=== PATIENT | female | born 1990 | race Caucasian/White ===

== ENCOUNTER 2018-02-23 09:59 | Inpatient (IN) | payer OTHER ==
[2018-02-23 11:17] VITALS: BMI 25.4
--- NOTE | 2018-02-23 19:29 | HP ---
CIWA Score - CIWA Score Nausea/Vomitin Muscle Tremors: 3 Anxiety: 3 Agitation: 3 Paroxysmal Sweats: 3 Orientation: 0-Oriented Tacttile Disturbances: 0-None Auditory Disturbances: 0-None Visual Disturbances: 0-None Headache: 0-None Present CIWA-Ar Total Score: 15 Admission ROS BHS - HPI Chief Complaint: "My drinking is getting too much and I just want to stop" Allergies/Adverse Reactions: Allergies Allergy/AdvReac Type Severity Reaction Status Date / Time No Known Allergies Allergy Verified 02/23/18 18:11 History of Present Illness: 27 y/o female presents requesting detox. Pt states this is her first time seeking help with drinking because "my drinking got worse lately" Last drink was 3am. Denies med hx. Psych hx - depression, Anxiety Denies prior or current Si/HI Exam Limitations: No Limitations - Ebola screening Have you traveled outside of the country in the last 21 days: No (N) Have you had contact with anyone from an Ebola affected area: No Have you been sick,other than usual withdrawal symptoms: No Do you have a fever: No - Review of Systems Constitutional: Loss of Appetite, Unintentional Wgt. Loss EENT: reports: No Symptoms Reported Respiratory: reports: No Symptoms reported Cardiac: reports: No Symptoms Reported GI: reports: Diarrhea, Poor Appetite, Abdominal cramping : reports: No Symptoms Reported Musculoskeletal: reports: No Symptoms Reported Integumentary: reports: Dryness (dryness to lips), Sweating Neuro: reports: Headache Endocrine: reports: Other (sweating) Hematology: reports: Easy Bleeding Psychiatric: reports: Orientated x3, Anxious, Depressed Other Systems: Reviewed and Negative Patient History - Patient Medical History Hx Anemia: No Hx Asthma: Yes (Albuterol prn) Hx Chronic Obstructive Pulmonary Disease (COPD): No Hx Cancer: No Hx Cardiac Disorders: No Hx Congestive Heart Failure: No Hx Hypertension: No Hx Hypercholesterolemia: No Hx Pacemaker: No HX Cerebrovascular Accident: No Hx Seizures: No Hx Dementia: No Hx Diabetes: No Hx Gastrointestinal Disorders: No Hx Liver Disease: No Hx Genitourinary Disorders: No Hx Sexually Transmitted Disorders: No Hx Renal Disease (ESRD): No Hx Thyroid Disease: No Hx Human Immunodeficiency Virus (HIV): No (Requests testing) Hx Hepatitis C: No Hx Depression: Yes Hx Suicide Attempt: No (denies Current SI) Hx Bipolar Disorder: No Hx Schizophrenia: No - Patient Surgical History Past Surgical History: Yes Hx Neurologic Surgery: No Hx Cataract Extraction: No Hx Cardiac Surgery: No Hx Lung Surgery: No Hx Breast Surgery: No Hx Breast Biopsy: No Hx Abdominal Surgery: No Hx Appendectomy: No Hx Cholecystectomy: No Hx Genitourinary Surgery: No Hx Section: Yes (jun 2009) Hx Orthopedic Surgery: No Hx Hysterectomy: No - PPD History Previous Implant?: No Documented Results: Negative w/o proof Implanted On Prior [facility] Admission?: No PPD to be Administered?: Yes - Reproductive History Patient is a Female of Child Bearing Age (11 -55 yrs old): Yes Last Menstrual Period: 02/02/18 Patient : No - Smoking Cessation Smoking history: Current some day smoker Have you smoked in the past 12 months: Yes Initiated information on smoking cessation: Yes 'Breaking Loose' booklet given: 02/23/18 - Substance & Tx. History Hx Alcohol Use: Yes Hx Substance Use: No Substance Use Type: Alcohol, Marijuana Hx Substance Use Treatment: No - Substances Abused Alcohol Route: Oral Frequency: Daily Amount used: Vodka 1 pint Age of first use: 19 Date of Last Use: 02/23/18 Marijuana/Hashish Route: Smoking Frequency: 1-2 times per week Amount used: 1 bag Age of first use: 19 Date of Last Use: 02/19/18 Family Disease History - Family Disease History Family Disease History: Diabetes: Father (Alive), CA: Mother (Breast. bipolar, anxiety), Other: Grandparent (Alive, Alcoholic), Mother, Brother (Depression), Daughter (Asthma (8 y/o)) Admission Physical Exam S - Vital Signs Vital Signs: Vital Signs - 24 hr 02/23/18 11:13 Temperature 97 F L Pulse Rate 94 H Respiratory 18 Rate Blood Pressure 139/79 - Physical General Appearance: Yes: Mild Distress, Anxious HEENTM: Yes: Within Normal Limits Respiratory: Yes: Lungs Clear, Normal Breath Sounds Neck: Yes: No masses,lesions,Nodules, Trachea in good position Breast: Yes: Breast Exam Deferred Cardiology: Yes: Regular Rate Abdominal: Yes: Non Tender Genitourinary: Yes: Within Normal Limits Back: Yes: Normal Inspection Musculoskeletal: Yes: full range of Motion, Gait Steady Extremities: Yes: Normal Capillary Refill, Normal Inspection Neurological: Yes: Fully Oriented, Alert, Motor Strength 5/5 Integumentary: Yes: Normal Color Lymphatic: Yes: Within Normal Limits - Diagnostic (1) Uncomplicated alcohol dependence Current Visit: Yes Status: Acute (2) Marijuana dependence Current Visit: Yes Status: Chronic (3) Dehydration Current Visit: Yes Status: Acute Cleared for Admission [facility] - Detox or Rehab [facility] Level of Care: Medically Managed Detox Regimen/Protocol: Librium [facility] Breath Alcohol Content Breath Alcohol Content: 0.144 Urine Pregancy Test - Result Urine Test Results: Negative- NO Line Present Urine Drug Screen - Results Drug Screen Negative: No Urine Drug Screen Results: THC-Marijuana, TCA-Tricyclic Antidepress
[2018-02-23] MEDS ORDERED: ACETAMINOPHEN 325 MG TABLET (FP) PO PRN (19:52)
[2018-02-23] MEDS ORDERED: MAGNESIUM HYDROX 2400MG/30ML ORAL SUSPENSION 30 ML CUP PO PRN (19:52)
[2018-02-23] MEDS ORDERED: guaiFENesin/D-METHORPHAN HB 10 ML UNIT-DOSE CUPS PO PRN (19:52)
[2018-02-23] MEDS ORDERED: chlordiazePOXIDE HCL 25 MG CAPSULE PO ONE (19:52)
[2018-02-23] MEDS ORDERED: IBUPROFEN 400 MG TABLET (FP) PO PRN (19:52)
[2018-02-23] MEDS ORDERED: P-EPHED 60MG/TRIPROLIDI 2.5MG TABLET PO PRN (19:52)
[2018-02-23] MEDS ORDERED: MENTHOL/PHENOL 1 EACH UD MM PRN (19:52)
[2018-02-23] MEDS ORDERED: MAGNESIUM CITRATE 300 ML BOTTLE PO PRN (19:52)
[2018-02-23] MEDS ORDERED: MAG HYDROX/AL HYDROX/SIMETH 30 ML UNIT-DOSE CUP PO PRN (19:52)
[2018-02-23] MEDS: THIAMINE HCL 100 MG TABLET (FP) PO SCH (22:16)
[2018-02-23] MEDS: chlordiazePOXIDE HCL 25 MG CAPSULE PO SCH (22:17)
[2018-02-23] MEDS: MELATONIN 5 MG TABLETS PO PRN (22:17)
[2018-02-24] MEDS: chlordiazePOXIDE HCL 25 MG CAPSULE PO SCH ×4 (05:13→22:14)
[2018-02-24] MEDS: PRENATAL VITAMINS W/ FOLIC ACID TABLET (FP) PO SCH (10:22)
[2018-02-24] MEDS: LOPERAMIDE HCL 2 MG CAPSULE PO PRN (10:22)
[2018-02-24 10:37] LABS: HEMATOCRIT 39.4 % (32.4-45.2); HEMOGLOBIN 13.2 GM/dL (10.7-15.3); MCH 34.6 pg (25.7-33.7); MCHC 33.5 g/dl (32.0-36.0); MEAN CELL VOLUME 103.3 fl (80-96); MEAN PLT VOLUME 9.7 fl (7.5-11.1); PLATELET COUNT 179 K/MM3 (134-434); RBC 3.82 M/mm3 (3.60-5.2); WHITE BLOOD COUNT 4.4 K/mm3 (4.0-10.0)
[2018-02-24 10:39] LABS: ALBUMIN 3.6 g/dl (3.4-5.0); ANION GAP 10 (8-16); BLOOD UREA NITROGEN 7 mg/dL (7-18); CALCIUM 8.3 mg/dL (8.5-10.1); CHLORIDE 105 mmol/L (98-107); CO2 25 mmol/L (21-32); GLUCOSE,RANDOM 82 mg/dL (74-106); SGPT/ALT 55 U/L (12-78); SODIUM 140 mmol/L (136-145)
--- NOTE | 2018-02-24 10:40 | PN ---
S CIWA - CIWA Score Nausea/Vomitin-Mild Nausea/No Vomiting Muscle Tremors: 4-Moderate,w/Arms Extend Anxiety: 3 Agitation: 3 Paroxysmal Sweats: 3 Orientation: 0-Oriented Tacttile Disturbances: 0-None Auditory Disturbances: 0-None Visual Disturbances: 0-None Headache: 1-Very Mild CIWA-Ar Total Score: 15 S Progress Note (SOAP) Subjective: shakes sweats cold chills body aches anxiety Objective: 02/24/18 10:40 Vital Signs Temperature 97.3 F L 02/24/18 06:00 Pulse Rate 75 02/24/18 06:00 Respiratory Rate 18 02/24/18 06:00 Blood Pressure 123/86 02/24/18 06:00 O2 Sat by Pulse Oximetry (%) labs pending [id number] ambulating no acute distress Assessment: 02/24/18 10:41 withdrawal sx Plan: continue detox increase fluids labs pending
[2018-02-24 10:41] LABS: ALK PHOS 45 U/L (45-117); BILIRUBIN,TOTAL 0.9 mg/dL (0.2-1.0); CREATININE 0.7 mg/dL (0.55-1.02); TOT PROT 6.4 g/dl (6.4-8.2)
[2018-02-24 10:49] LABS: POTASSIUM 3.7 mmol/L (3.5-5.1); SGOT/AST 54 U/L (15-37)
[2018-02-24 11:07] LABS: URINE APPEARANCE CLOUDY; URINE BILIRUBIN NEGATIVE (<2.0 mg/dL); URINE COLOR AMBER; URINE GLUCOSE (UA) NEGATIVE (NEGATIVE); URINE KETONE TRACE (NEGATIVE); URINE LEUK ESTERASE NEGATIVE (NEGATIVE); URINE NITRITE NEGATIVE (NEGATIVE); URINE UROBILINOGEN 4.0 E.U/dl mg/dL (0.2-1.0)
[2018-02-24 11:15] LABS: URINE PROTEIN 2+ (NEGATIVE)
[2018-02-24 11:27] LABS: CALCIUM OXALATE CRYSTALS MODERATE /hpf (NONE SEEN); EPI CELLS FEW /HPF (FEW); URINE MUCUS MODERATE
[2018-02-24] MEDS: LIDOCAINE 5% TOPICAL PATCH TP ONE ×2 (12:00→13:40)
[2018-02-24] MEDS: VITAMINS A AND D TOPICAL OINTMENT 60 GM TUBE TP SCH ×3 (13:00→23:03)
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
[2018-02-24] MEDS: chlordiazePOXIDE HCL 25 MG CAPSULE PO PRN ×2 (15:54→21:06)
[2018-02-24] MEDS ORDERED: LIDOCAINE PATCH REMOVAL MC SCH (22:00)
[2018-02-24] MEDS: MELATONIN 5 MG TABLETS PO PRN (22:14)
[2018-02-24] MEDS: CYCLOBENZAPRINE HCL 10 MG TABLET (FP) PO PRN (22:14)
[2018-02-24] MEDS: THIAMINE HCL 100 MG TABLET (FP) PO SCH (22:14)
[2018-02-25] MEDS: chlordiazePOXIDE HCL 25 MG CAPSULE PO SCH ×3 (05:14→17:25)
[2018-02-25] MEDS: VITAMINS A AND D TOPICAL OINTMENT 60 GM TUBE TP SCH ×4 (06:20→23:45)
[2018-02-25] MEDS ORDERED: LIDOCAINE 5% TOPICAL PATCH TP SCH (10:00)
--- NOTE | 2018-02-25 10:03 | PN ---
S CIWA - CIWA Score Nausea/Vomitin Muscle Tremors: 3 Anxiety: 2 Agitation: 2 Paroxysmal Sweats: 1-Minimal Palms Moist Orientation: 0-Oriented Tacttile Disturbances: 1-Very Mild Itch/Numbness Auditory Disturbances: 1-Very Mild Visual Disturbances: 0-None Headache: 2-Mild CIWA-Ar Total Score: 15 BHS Progress Note (SOAP) Subjective: ALERT,IRRITABLE,ANXIOUS,INTERRUPTED SLEEP,TREMOR Objective: 02/25/18 10:00 Vital Signs Temperature 95.9 F L 02/25/18 09:49 Pulse Rate 83 02/25/18 09:49 Respiratory Rate 20 02/25/18 09:49 Blood Pressure 115/75 02/25/18 09:49 O2 Sat by Pulse Oximetry (%) Laboratory Last Values WBC 4.4 K/mm3 (4.0-10.0) 02/24/18 08:00 RBC 3.82 M/mm3 (3.60-5.2) 02/24/18 08:00 Hgb 13.2 GM/dL (10.7-15.3) 02/24/18 08:00 Hct 39.4 % (32.4-45.2) 02/24/18 08:00 MCV 103.3 fl (80-96) H 02/24/18 08:00 MCH 34.6 pg (25.7-33.7) H 02/24/18 08:00 MCHC 33.5 g/dl (32.0-36.0) 02/24/18 08:00 RDW 14.0 % (11.6-15.6) 02/24/18 08:00 Plt Count 179 K/MM3 (134-434) 02/24/18 08:00 MPV 9.7 fl (7.5-11.1) 02/24/18 08:00 Sodium 140 mmol/L (136-145) 02/24/18 08:00 Potassium 3.7 mmol/L (3.5-5.1) 02/24/18 08:00 Chloride 105 mmol/L (98-107) 02/24/18 08:00 Carbon Dioxide 25 mmol/L (21-32) 02/24/18 08:00 Anion Gap 10 (8-16) 02/24/18 08:00 BUN 7 mg/dL (7-18) 02/24/18 08:00 Creatinine 0.7 mg/dL (0.55-1.02) 02/24/18 08:00 Creat Clearance w eGFR > 60 (>60) 02/24/18 08:00 Random Glucose 82 mg/dL (74-106) 02/24/18 08:00 Calcium 8.3 mg/dL (8.5-10.1) L 02/24/18 08:00 Total Bilirubin 0.9 mg/dL (0.2-1.0) 02/24/18 08:00 AST 54 U/L (15-37) H 02/24/18 08:00 ALT 55 U/L (12-78) 02/24/18 08:00 Alkaline Phosphatase 45 U/L (45-117) 02/24/18 08:00 Total Protein 6.4 g/dl (6.4-8.2) 02/24/18 08:00 Albumin 3.6 g/dl (3.4-5.0) 02/24/18 08:00 Urine Color Shireen 02/24/18:20 Urine Appearance Cloudy 02/24/18 09:20 Urine pH 7.0 (5.0-8.0) 02/24/18 09:20 Ur Specific [place] 1.029 (1.001-1.035) 02/24/18 09:20 Urine Protein 2+ (NEGATIVE) H 02/24/18 09:20 Urine Glucose (UA) Negative (NEGATIVE) 02/24/18 09:20 Urine Ketones Trace (NEGATIVE) H 02/24/18 09:20 Urine Blood 1+ (NEGATIVE) H 02/24/18 09:20 Urine Nitrite Negative (NEGATIVE) 02/24/18 09:20 Urine Bilirubin Negative (<2.0 mg/dL) 02/24/18 09:20 Urine Urobilinogen 4.0 e.u/dl mg/dL (0.2-1.0) H 02/24/18 09:20 Ur Leukocyte Esterase Negative (NEGATIVE) 02/24/18 09:20 Urine WBC (Auto) 5 /hpf (3-5) 02/24/18 09:20 Urine RBC (Auto) 31 /hpf (0-3) 02/24/18 09:20 Ur Epithelial Cells Few /HPF (FEW) 05/20/18 09:20 Calcium Oxalate Crystal Moderate /hpf (NONE SEEN) 02/24/18 09:20 Urine Mucus Moderate 02/24/18 09:20 RPR Titer Nonreactive (NONREACTIVE) 02/24/18 08:00 Assessment: 02/25/18 10:02 WITHDRAWAL SYMPTOM Plan: CONTINUE DETOX,REPEAT UA
[2018-02-25] MEDS: PRENATAL VITAMINS W/ FOLIC ACID TABLET (FP) PO SCH (10:15)
[2018-02-25] MEDS: LOPERAMIDE HCL 2 MG CAPSULE PO PRN (12:46)
[2018-02-25] MEDS: chlordiazePOXIDE HCL 25 MG CAPSULE PO PRN (12:49)
[2018-02-25] MEDS: hydrOXYzine PAMOATE 50 MG CAPSULE (FP) PO PRN ×2 (18:34→22:27)
[2018-02-25] MEDS: chlordiazePOXIDE 5 MG CAPSULE PO SCH (22:23)
[2018-02-25] MEDS: CYCLOBENZAPRINE HCL 10 MG TABLET (FP) PO PRN (22:23)
[2018-02-25] MEDS: THIAMINE HCL 100 MG TABLET (FP) PO SCH (22:23)
[2018-02-25] MEDS: MELATONIN 5 MG TABLETS PO PRN (22:28)
--- NOTE | 2018-02-26 00:50 | EKG ---
Test Reason : Blood Pressure : / mmHG Vent. Rate : 067 BPM Atrial Rate : 067 BPM P-R Int : 134 ms QRS Dur : 092 ms QT Int : 390 ms P-R-T Axes : 048 026 008 degrees QTc Int : 412 ms NORMAL SINUS RHYTHM WITH SINUS ARRHYTHMIA NORMAL ECG NO PREVIOUS ECGS AVAILABLE Confirmed by LORE BROWN MD ([id number]) on 02/26/2018 12:50:25 AM Referred By: Confirmed By:LORE BROWN MD
[2018-02-26] MEDS: chlordiazePOXIDE 5 MG CAPSULE PO SCH ×3 (05:21→17:55)
[2018-02-26] MEDS: CYCLOBENZAPRINE HCL 10 MG TABLET (FP) PO PRN ×2 (05:23→18:28)
[2018-02-26] MEDS: VITAMINS A AND D TOPICAL OINTMENT 60 GM TUBE TP SCH ×3 (05:26→22:14)
--- NOTE | 2018-02-26 09:34 | PN ---
S Progress Note (SOAP) Subjective: ALERT,ANXIOUS,INTERRUPTED SLEEP, Objective: 02/26/18 09:32 Vital Signs Temperature 97.2 F L 02/26/18 09:08 Pulse Rate 67 02/26/18 09:08 Respiratory Rate 18 02/26/18 09:08 Blood Pressure 104/51 02/26/18 09:08 O2 Sat by Pulse Oximetry (%) Assessment: 02/26/18 09:32 WITHDRAWAL SYMPTOM Plan: CONTINUE DETOX,REPEAT UA,PSYCHIATRIC REEVALUATION FOR ANXIETY AND DEPRESSION
[2018-02-26] MEDS: PRENATAL VITAMINS W/ FOLIC ACID TABLET (FP) PO SCH (10:57)
[2018-02-26] MEDS: hydrOXYzine PAMOATE 50 MG CAPSULE (FP) PO PRN ×2 (13:23→22:12)
[2018-02-26] MEDS: chlordiazePOXIDE HCL 25 MG CAPSULE PO PRN (13:23)
--- NOTE | 2018-02-26 17:35 | PN ---
Psychiatric Progress Note Vital Signs: Vital Signs Period Temp Pulse Resp BP Sys/Patel Pulse Ox Last 24 Hr 97.2 F-98.1 F 67-123 16-18 100-134/51-98 Date of Session: 02/26/18 Chief Complaint:: " I feel like I am wasting my time here". HPI: Day 4 of detoxification treatment for alcohol + cannabis dependence.Patient requested a session with the psychiatrist to address her dissatisfaction with current services and get education about the treatment of an affective disorder (anxiety/depression).Hospital course is otherwise unremarkable. ROS: Unremarkable. Current Medications: Active Medications Generic Name Dose Route Start Last Admin Trade Name Freq PRN Reason Stop Dose Admin Acetaminophen 650 mg 02/23/18 19:52 Tylenol - PO Q4H PRN FEVER Al Hydroxide/Mg Hydroxide 30 ml 02/23/18 19:52 Mylanta Oral Suspension - PO Q6H PRN DYSPEPSIA Chlordiazepoxide HCl 25 mg 02/23/18 19:52 02/26/18 13:23 Librium - PO 02/26/18 19:51 25 mg Q4H PRN Administration WITHDRAWAL(CONT SUBST) Chlordiazepoxide HCl 10 mg 02/26/18 23:00 Librium - PO 02/27/18 17:01 [id number] MARY Cyclobenzaprine HCl 10 mg 02/24/18 14:16 02/26/18 05:23 Flexeril - PO 10 mg Q8H PRN Administration MUSCLE SPASMS Eucalyptus/Menthol/Phenol/Sorbitol 1 each 02/23/18 19:52 Cepastat Lozenge - MM Q4H PRN SORE THROAT Guaifenesin 10 ml 02/23/18 19:52 Robitussin Dm - PO Q6H PRN COUGH Hydroxyzine Pamoate 50 mg 02/25/18 17:33 02/26/18 13:23 Vistaril - PO 50 mg Q4H PRN Administration FOR ITCHING Ibuprofen 400 mg 02/23/18 19:52 Motrin - PO Q6H PRN PAIN LEVEL 4-6 Loperamide HCl 4 mg 02/23/18 19:52 02/25/18 12:46 Imodium - PO 4 mg Q6H PRN Administration DIARRHEA Magnesium Citrate 300 ml 02/23/18 19:52 Citroma - PO Q48H PRN CONSTIPATION Magnesium Hydroxide 30 ml 02/23/18 19:52 Milk Of Magnesia - PO DAILY PRN CONSTIPATION Melatonin 5 mg 02/23/18 22:00 02/25/18 22:28 Melatonin PO 5 mg HS PRN Administration INSOMNIA Multivit/Folic Acid/Iron 1 tab 02/24/18 10:00 02/26/18 10:57 Vitamins (Sjr) - PO 1 tab DAILY MARY Administration Pseudoephedrine/Triprolidine 1 combo 02/23/18 19:52 Actifed - PO TID PRN NASAL CONGESTION Thiamine HCl 100 mg 02/23/18 22:00 02/25/18 22:23 Vitamin B1 - PO 100 mg HS MARY Administration Vitamin A/Vitamin D 1 applic 02/24/18 12:00 02/26/18 11:00 Vitamin A & D Top Oint - TP 1 applic Q6HPO MARY Administration Medication(s) Change(s): None necessary. Current Side Effect: No Lab tests ordered: No Lab tests reviewed: Yes Provider note:: Chart reviewed.Met with the patient (at her request).Ms Rivas is conversant,well-related and goal-directed.She reports feeling dysphoric about " the way that some staff treated me " on the unit.Patient felt that some of her needs were not properly addressed or ignored.She complains that she had " to wait " to get some items necessary for personal hygiene,foodstuffs or medications.Patient verbalizes unrealistic expectations about level of psychiatric care designed for a detox program.She thought that psychotropic medications would be dispensed that have the virtues of instantly alleviating symptoms of anxiety/depression in a context of withdrawal.She expected multiple one-to-one sessions with psychiatrists and frequent prn doses of anxiolytics ( preferably benzodiazepines).Ms Rivas is redirected.Her complaints are validated and she is reminded of patient's rights.Informed of administrative channels available for resolution of her grievances.Educated about the natural course of mood disorders,modalities of treatment,complexities of a withdrawal syndrome and the conventional protocols of detoxification care.Patient informs that she has already secured an appointment with a therapist in the community.Eager to transition to OPD care at the completion of this detox regimen.Ms Rivas is noted as reassured,pleasant,receptive to feedback and motivated for full adherence to this detox protocol.Mental status remains stable.The patient is NOT a danger to self or others.Ms Rivas is at baseline. Total face to face time:: 35 Mental Status Exam - Mental Status Exam Alert and Oriented to: Time, Place, Person Cognitive Function: Good Patient Appearance: Well Groomed Mood: Apprehensive (mildly anxious), Hopeful Affect: Appropriate, Normal Range Patient Behavior: Appropriate, Cooperative Speech Pattern: Clear, Appropriate Voice Loudness: Normal Thought Process: Intact, Goal Oriented Thought Disorder: Not Present Hallucinations: Denies Suicidal Ideation: Denies Homicidal Ideation: Denies Insight/Judgement: Fair Sleep: Well Appetite: Good Muscle strength/Tone: Normal Gait/Station: Normal Psychiatric Treatment Plan - Problem List (1) Alcohol dependence with uncomplicated withdrawal Current Visit: Yes (2) Cannabis dependence Current Visit: Yes (3) Substance induced mood disorder Current Visit: Yes
[2018-02-26] MEDS: THIAMINE HCL 100 MG TABLET (FP) PO SCH (22:12)
[2018-02-26] MEDS: chlordiazePOXIDE HCL 10 MG CAPSULE PO SCH (22:12)
[2018-02-26] MEDS: MELATONIN 5 MG TABLETS PO PRN (23:39)
[2018-02-27] MEDS: VITAMINS A AND D TOPICAL OINTMENT 60 GM TUBE TP SCH ×2 (00:48→06:44)
[2018-02-27] MEDS: chlordiazePOXIDE HCL 10 MG CAPSULE PO SCH (06:44)
--- NOTE | 2018-02-27 08:47 | PN ---
S Progress Note (SOAP) Subjective: ALERT,NO COMPLAINT Objective: Vital Signs Temperature 97.2 F L 02/27/18 06:43 Pulse Rate 74 02/27/18 06:43 Respiratory Rate 18 02/27/18 06:43 Blood Pressure 94/70 02/27/18 06:43 O2 Sat by Pulse Oximetry (%) 02/27/18 08:44 Assessment: 02/27/18 08:46 DETOX COMPLETED,NO WITHDRAWAL SYMPTOM Plan: DISCHARGE TODAY,FOLLOW YP WITH AFTER CARE PROGRAM ARRANGEMENT
--- NOTE | 2018-02-27 08:53 | DS ---
[facility] Detox Discharge Summary Admission Date: 02/23/18 Discharge Date: 02/27/18 - History Present History: Alcohol Dependence, Cannabis Dependence Additional Comments: FOLLOW UP WITH AFTER CARE PROGRAM ARRANGEMENT Pertinent Past History: ANXIETY DEPRESSION - Physical Exam Results Vital Signs: Vital Signs Temperature 97.2 F L 02/27/18 06:43 Pulse Rate 74 02/27/18 06:43 Respiratory Rate 18 02/27/18 06:43 Blood Pressure 94/70 02/27/18 06:43 O2 Sat by Pulse Oximetry (%) Pertinent Admission Physical Exam Findings: WITHDRAWAL SIGNS AND SYMPTOM Vital Signs Temperature 97.2 F L 02/27/18 06:43 Pulse Rate 74 02/27/18 06:43 Respiratory Rate 18 02/27/18 06:43 Blood Pressure 94/70 02/27/18 06:43 O2 Sat by Pulse Oximetry (%) Laboratory Last Values WBC 4.4 K/mm3 (4.0-10.0) 02/24/18 08:00 RBC 3.82 M/mm3 (3.60-5.2) 02/24/18 08:00 Hgb 13.2 GM/dL (10.7-15.3) 02/24/18 08:00 Hct 39.4 % (32.4-45.2) 02/24/18 08:00 MCV 103.3 fl (80-96) H 02/24/18 08:00 MCH 34.6 pg (25.7-33.7) H 02/24/18 08:00 MCHC 33.5 g/dl (32.0-36.0) 02/24/18 08:00 RDW 14.0 % (11.6-15.6) 02/24/18 08:00 Plt Count 179 K/MM3 (134-434) 02/24/18 08:00 MPV 9.7 fl (7.5-11.1) 02/24/18 08:00 Sodium 140 mmol/L (136-145) 02/24/18 08:00 Potassium 3.7 mmol/L (3.5-5.1) 02/24/18 08:00 Chloride 105 mmol/L (98-107) 02/24/18 08:00 Carbon Dioxide 25 mmol/L (21-32) 02/24/18 08:00 Anion Gap 10 (8-16) 02/24/18 08:00 BUN 7 mg/dL (7-18) 02/24/18 08:00 Creatinine 0.7 mg/dL (0.55-1.02) 02/24/18 08:00 Creat Clearance w eGFR > 60 (>60) 02/24/18 08:00 Random Glucose 82 mg/dL (74-106) 02/24/18 08:00 Calcium 8.3 mg/dL (8.5-10.1) L 02/24/18 08:00 Total Bilirubin 0.9 mg/dL (0.2-1.0) 02/24/18 08:00 AST 54 U/L (15-37) H 02/24/18 08:00 ALT 55 U/L (12-78) 02/24/18 08:00 Alkaline Phosphatase 45 U/L (45-117) 02/24/18 08:00 Total Protein 6.4 g/dl (6.4-8.2) 02/24/18 08:00 Albumin 3.6 g/dl (3.4-5.0) 02/24/18 08:00 Urine Color Shireen 02/24/18 09:20 Urine Appearance Cloudy 02/24/18 09:20 Urine pH 7.0 (5.0-8.0) 02/24/18 09:20 Ur Specific [place] 1.029 (1.001-1.035) 02/24/18 09:20 Urine Protein 2+ (NEGATIVE) H 02/24/18 09:20 Urine Glucose (UA) Negative (NEGATIVE) 02/24/18 09:20 Urine Ketones Trace (NEGATIVE) H 02/24/18 09:20 Urine Blood 1+ (NEGATIVE) H 02/24/18 09:20 Urine Nitrite Negative (NEGATIVE) 02/24/18 09:20 Urine Bilirubin Negative (<2.0 mg/dL) 02/24/18 09:20 Urine Urobilinogen 4.0 e.u/dl mg/dL (0.2-1.0) H 02/24/18 09:20 Ur Leukocyte Esterase Negative (NEGATIVE) 02/24/18 09:20 Urine WBC (Auto) 5 /hpf (3-5) 02/24/18 09:20 Urine RBC (Auto) 31 /hpf (0-3) 02/24/18 09:20 Ur Epithelial Cells Few /HPF (FEW) 02/24/18 09:20 Calcium Oxalate Crystal Moderate /hpf (NONE SEEN) 02/24/18 09:20 Urine Mucus Moderate 02/24/18 09:20 RPR Titer Nonreactive (NONREACTIVE) 02/24/18 08:00 - Treatment Hospital Course: Detox Protocol Followed, Detoxed Safely, Responded well, Discharged Condition Good Patient has Accepted a Rehab Referral to: DECLINED - Medication Discharge Medications: Ambulatory Orders Albuterol Sulfate Inhaler - [Ventolin Hfa Inhaler -] 1 - 2 inh PO PRN 02/23/18 - Diagnosis (1) Alcohol dependence with uncomplicated withdrawal Current Visit: Yes Status: Acute (2) Dehydration Current Visit: Yes Status: Acute (3) Cannabis dependence Current Visit: Yes Status: Acute (4) Anxiety and depression Current Visit: Yes Status: Acute - AMA Did Patient Leave Against Medical Advice: No
[2018-02-27] MEDS: hydrOXYzine PAMOATE 50 MG CAPSULE (FP) PO PRN (08:54)
[2018-02-27 09:09] VITALS: BP 95/63; PULSE 63; TEMP 97.5
== END 2018-02-27 12:51 | disposition home or self-care (01) | DRG 775 ==
LOC: YASAS 09:59 → Y6N 18:38
PROVIDERS: ADMIT Surgery; ATTEND Surgery
PROC: HZ2ZZZZ Detoxification Services for Substance Abuse Treatment (ICD-10-PCS; principal; 2018-02-23)
DX: F10.230 Alcohol dependence with withdrawal, uncomplicated (principal); F12.20 Cannabis dependence, uncomplicated; F17.210 Nicotine dependence, cigarettes, uncomplicated; F41.8 Other specified anxiety disorders; F19.24 Other psychoactive substance dependence with psychoactive substance-induced mood disorder; E86.0 Dehydration; J45.909 Unspecified asthma, uncomplicated
CPT/HCPCS: 36415; 80053; 81003; 81015; 85027; 86593; 93005; 93010

== ENCOUNTER 2019-05-03 13:59 | Inpatient (IN) | payer OTHER | END 2019-05-05 10:49 | disposition left against medical advice (07) | LOC: YASAS 13:59 → Y6N 15:13 ==